=== PATIENT | male | born 1955 | race Caucasian/White ===

== ENCOUNTER 2024-07-27 13:00 | Day surgery (SDC) | payer MEDICARE ==
[2024-07-27] VITALS (7 sets, daily range): BP systolic 105–137; BP diastolic 52–73; PULSE 53–65; TEMP 97.2–98.1
[~2024-07-27] VITALS: Ht 177.8 cm; Wt 94.7 kg
[~2024-07-27 13:00] MED LIST: LR 1,000 ML IV SCH
--- NOTE | 2024-07-27 14:27 | NUR ---
Patient admitted to [facility] bay 8 at 1338. Denies complaints. Admission assessments completed. Consent signed. Blood sugar obtained. 18G IV inserted into right hand, LR infusing without difficulty. Medications, allergies, and pharmacy confirmed. Pts brother leaves, instructed to call when he returns and we will let him into pre-op area. VSS. Reading glasses in patient belongings bag. Cart in low position, call light within reach.
[2024-07-27] MEDS ORDERED: LIPITOR20 MG PO (14:30)
[2024-07-27] MEDS ORDERED: ASPIRIN 81M81 MG/TA2 PO (14:31)
[2024-07-27] MEDS ORDERED: FLOMAX 0.40.4 MG/CAP PO (14:32)
[2024-07-27] MEDS ORDERED: DITROPAN XL 5MG5 M1 PO (14:32)
[2024-07-27] MEDS ORDERED: PROSCAR 5MG5 MG PO (14:32)
[2024-07-27] MEDS ORDERED: NORVASC 10MG10 MG PO (14:33)
[2024-07-27] MEDS ORDERED: HYDROCHLOROTH12.5 MG PO (14:34)
[2024-07-27] MEDS ORDERED: PLAVIX 75MG TAB75 MG PO (14:34)
[2024-07-27] MEDS ORDERED: PRINIVIL20 MG PO (14:34)
--- NOTE | 2024-07-27 15:30 | NUR ---
Patient updated that Dr. Kevin is expected to arrive late for his surgery. Pt denies questions or complaints.
[2024-07-27] MEDS ORDERED: Midazolam 2 MG/2 ML VIAL ONE (16:15)
[2024-07-27] MEDS ORDERED: Lidocaine PF 2% (20 MG/ML) 5 ML VIAL ONE (16:16)
--- NOTE | 2024-07-27 18:00 | NUR ---
Pt in [place] [facility], getting fustrated about the delay in surgery, reasured and offered support. Pt asks to check on his brother, pt's brother in the waiting room and updated give, pt doesn't want his pt to come back at this time, cell phone obtained and he is going to go eat supper and then return. Pt offered a warm blanket and accepts and offered to turn the tv on and he does.
--- NOTE | 2024-07-27 19:00 | NUR ---
Pt's brother has returned to waiting room and updated that pt has gone to the OR.
[2024-07-27] MEDS ORDERED: HYDROmorphone 1 MG/1 ML SYRINGE [PACU/SDC ONLY] IV PRN (19:30)
[2024-07-27] MEDS ORDERED: Meperidine 50 MG/ML 1 ML VIAL IV PRN (19:30)
[2024-07-27] MEDS ORDERED: droPERidol 2.5 MG/ML 2 ML VIAL IV PRN (19:30)
[2024-07-27] MEDS ORDERED: fentaNYL 50 MCG/ML 1 ML SYRINGE/VIAL [PACU/SDC ONLY] IV PRN (19:30)
[2024-07-27] MEDS ORDERED: Ondansetron 4 MG/2 ML VIAL IV PRN ×2 (19:30→21:15)
[2024-07-27] MEDS ORDERED: Morphine 2 MG/1 ML VIAL [PACU/SDC ONLY] IV PRN (19:30)
[2024-07-27] MEDS ORDERED: Lidocaine 2% (20 MG/ML) 20 ML UROJET UR ONE (20:50)
[2024-07-27] MEDS ORDERED: Melatonin 3 MG TAB PO PRN (21:00)
[2024-07-27] MEDS ORDERED: NS Irrig Soln 3000 ML SOLN IR PRN (21:15)
[2024-07-27] MEDS ORDERED: Magnes Hydrox (MOM) 80 MG/ML 30 ML CUP PO PRN (21:15)
[2024-07-27] MEDS ORDERED: Naloxone 0.4 MG/ML VIAL IV PRN (21:15)
[2024-07-27] MEDS ORDERED: Hyoscyamine 0.125 MG Sublingual TAB SL PRN (21:15)
[2024-07-27] MEDS ORDERED: Glucagon 1 MG VIAL IM PRN (22:15)
[2024-07-27] MEDS ORDERED: Dextrose 50% Water 25 GM/50 ML SYRINGE IV PRN (22:15)
[2024-07-27] MEDS ORDERED: Dextrose (Glucose) 15 GM (4 x 3.75 GM) Chewable TABLET PACK PO PRN (22:15)
--- NOTE | 2024-07-27 22:15 | NUR ---
PT ARRIVED TO ROOM 343 FROM PACU ACCOMPANIED BY BRUNO TSE AND BROTHER. AWAKE AND ALERT, [place] WITH VU RED URINE WITH CLOTS, CBI INFUSING RAPIDLY. IV TO INT PRIOR TO ARRIVING TO FLOOR. PROVIDED SANDWICH, SUGAR FREE JELLO, ICE WATER AND APPLE SAUCE, TOLERATED W/O N/V. VSS ON RA.
[2024-07-27] MEDS ORDERED: Tranexamic Acid 1,000 MG/10 ML VIAL ONE (23:25)
[2024-07-28] VITALS (12 sets, daily range): BP systolic 33–146; BP diastolic 53–80; PULSE 58–99; TEMP 97.4–98.1
--- NOTE | 2024-07-28 07:16 | NUR ---
NORCO GIVEN FOR PAIN, TOLERATING DIET, NO N/V, CBI RUNNING AT MODERATE RATE, URINE DARK PINK, NO CLOTS PRESENT THIS AM.
--- NOTE | 2024-07-28 07:50 | NUR ---
Pt sleeping in bed. Call light in reach.
--- NOTE | 2024-07-28 08:17 | NUR ---
Pt sitting up in bed. A&Ox4. VSS. S1S2. Clear upper lungs bilateraly, diminished in bases. ABD is round, soft, non-tender with normal bowel sounds. Palpable pulses in all extremities with 4/5 strength. Pt reports having pain overnight but better now. 2/10 pain in lower pelvic area. Offered Levsin, Pt declined reporting "it did not do anything for me overnight." Pt denies n/v, headaches at this time. Call light in reach.
[2024-07-28] MEDS ORDERED: amLODIPine 10 MG TAB PO SCH (09:00)
[2024-07-28] MEDS ORDERED: Lisinopril 20 MG TAB PO SCH (09:00)
[2024-07-28] MEDS ORDERED: 1/2 NS & 20 mEq KCl 1,000 ML IV SCH (09:00)
[2024-07-28] MEDS ORDERED: hydroCHLOROthiazide 12.5 MG CAP PO SCH (09:00)
[2024-07-28] MEDS ORDERED: GLUCOTROL10 MG PO (11:25)
--- NOTE | 2024-07-28 11:29 | NUR ---
FLUE DUST LABORER met with pt bedside to complete initial assessment and discharge planning. Pt lives at home alone in [place]. His PCP is Dr. Florence Wilknison in [place]. Pt has no DPOA and NOK decision maker is his brother Migel [phone]. Pt does not want to fill out DPOA at this time. Pt unsure of pharmacy. PT has had no falls recently and does not use any DME or assistive equipment at home. Pt has no concerns returning home and declined any additional resources needed while at the hospital. FLUE DUST LABORER discussed HH and pt declined. D/C: Home
--- NOTE | 2024-07-28 11:37 | NUR ---
Data: Patient declined spiritual care visit offered during Physician Advisor rounds. He stated he had just turned his TV off so that he could nap. Assessment: None. Patient declined. Plan of Care: Chaplains will remain available as needed/requested while Patient is admitted to this hospital.
--- NOTE | 2024-07-28 12:11 | NUR ---
Discontiued Pt's Collins Catheter. Pt tolerated procedure well. Pt had approximately 20-30 cc of blood come out of urethra after catheter was removed. Bleeding stopped. Provided pericare and educated Pt on 6-cup regiment. Call light in reach and clean sheets provided.
--- NOTE | 2024-07-28 15:11 | NUR ---
Pt having pain while urinating. Administered Levsin. Educated Pt as to why there is still some blood while urinating. Will continue to monitor.
--- NOTE | 2024-07-28 16:18 | NUR ---
Pt reporting increased and sustained pain during urination. Pt is urinating dark red urine with minimal to no clots. Pt is stated pain is constant and unbearable. Used all current pain meds on DEC. Attempted to call Dr Rider, left a message.
--- NOTE | 2024-07-28 18:05 | NUR ---
Pt reporting continued dysuria. Administered Azo. Pt denies further needs at this time.
[2024-07-28] MEDS ORDERED: Finasteride 5 MG TAB PO SCH (21:00)
[2024-07-28] MEDS ORDERED: Atorvastatin 20 MG TAB PO SCH (21:00)
[2024-07-28] MEDS ORDERED: Insulin Lispro (HumaLOG) SQ SCH (22:00)
[2024-07-29 00:03] VITALS: BP 133/84; PULSE 101; TEMP 98.1
[2024-07-29 00:15] VITALS: BP_SYST 133
[2024-07-29 04:08] VITALS: BP 150/87; PULSE 104; TEMP 97.7
[2024-07-29 04:20] VITALS: BP_SYST 150
--- NOTE | 2024-07-29 05:30 | NUR ---
ASSESSMENT COMPLETE FOR GRAPHIC ART TECHNICIAN. pt COMPLAINED OF LOWER ABD CRAMPING AND PAIN WITH URINATION. pt's URINE OUTPUT REMINDS HEMATURIC AND pt DIDN'T HAVE MUCH OUTPUT. PROVIDER CALLED. PROVIDER SAID TO ENCOURAGE pt TO DRINK PLENTY OF WATER AND WE WILL SEE IF HIS OUTOUT IMPLOVES. pt ENCOURAGED TO DRINK MORE WATER AND GIVEN NORCO FOR PAIN. pt DENIED CHEST PAIN, PALPITATIONS, SOB, N,V,D OR DIZZINESS. WILL CONTINUE TO MONITOR. CALL LIGHT WITHIN REACH.
--- NOTE | 2024-07-29 06:50 | NUR ---
Pt laying in bed. Pt denies needs at this time. Multiple urine/blood droplets on floor. Called housekeeping for cleaning of room. No further needs at this time. Call light in reach.
[2024-07-29 07:16] VITALS: BP 128/81; PULSE 93; TEMP 97.9
[2024-07-29 09:07] VITALS: BP_SYST 128
--- NOTE | 2024-07-29 09:08 | NUR ---
Pt sitting up in chair. Dressed in clothes ready for D/C. A&Ox4. VSS. S1S2. Clear lungs on RA. ABD round, soft, non-tender with audible bowel sounds. Palpable pulses in all extremities with 5/5 strength. Pt reports pain 3/10 in lower pelvis. Does not want pain meds at this time. IV in R hand patent. D/C'ed IV as patient is D/C today. Pressure bandage applied. Pt denies n/v, headache, dizziness. Pt refused breakfast. Reminded Pt to continue drinking plenty of water. Call light in reach.
--- NOTE | 2024-07-29 09:50 | NUR ---
Pt educated on D/C instructions and information. At the time, Pt denied any questions. Pt waiting in room for ride home. Pt looking over information packets. Call light in reach.
--- NOTE | 2024-07-29 11:17 | NUR ---
Pt transported to vehicle via by this RN. Brother drove Pt. Pt did not have any further questions regarding D/C.
== END 2024-07-29 11:18 | disposition home or self-care (01) ==
LOC: SDCO 13:00 → SURG 22:15 → SDCO 07-29 11:18
DX: N21.0 Calculus in bladder (principal); N40.1 Benign prostatic hyperplasia with lower urinary tract symptoms; R39.14 Feeling of incomplete bladder emptying; R39.12 Poor urinary stream; R35.1 Nocturia; F17.220 Nicotine dependence, chewing tobacco, uncomplicated; E11.9 Type 2 diabetes mellitus without complications; Z79.84 Long term (current) use of oral hypoglycemic drugs; Z79.02 Long term (current) use of antithrombotics/antiplatelets; Z79.82 Long term (current) use of aspirin; Z95.5 Presence of coronary angioplasty implant and graft
CPT/HCPCS: OP; J0690; J1815; J2250; J2704; J7120